=== PATIENT | male | born 1955 | race Caucasian/White ===

== ENCOUNTER 2020-12-26 16:41 | Inpatient (IN) | payer SELFPAY ==
[2020-12-26] VITALS (9 sets, daily range): BP systolic 158–175; BP diastolic 92–111; PULSE 53–66; RESP 18–20; TEMP 36.5–37; O2SAT 93–98; BMI 25.8; BMI 26.1
--- NOTE | 2020-12-26 16:48 | PC.NURSE ---
Stroke alert called.
--- NOTE | 2020-12-26 16:51 | PC.NURSE ---
fsbs 169
--- NOTE | 2020-12-26 16:53 | CT_ITS ---
PROCEDURE INFORMATION: Exam: CT Head Without Contrast Exam date and time: 12/26/2020 4:53 PM Age: 65 years old Clinical indication: Altered mental status/memory loss; Confusion or disorientation; Additional info: Stroke alert TECHNIQUE: Imaging protocol: Computed tomography of the head without contrast. Radiation optimization: All CT scans at this facility use at least one of these dose optimization techniques: automated exposure control; mA and/or kV adjustment per patient size (includes targeted exams where dose is matched to clinical indication); or iterative reconstruction. Other technique: STROKE PROTOCOL was implemented. COMPARISON: No relevant prior studies available. FINDINGS: Brain: No intracranial bleed, suspicious mass, or mass effect. Ventricles appear unremarkable. There is minimal low attenuation change in the white matter most consistent with chronic age related small vessel ischemic change. No acute territorial infarction is seen. These can be initially occult on head CT. ASPECTS score 10. Cerebral ventricles: See Brain finding. Paranasal sinuses: Visualized sinuses are unremarkable. No fluid levels. Mastoid air cells: Visualized mastoid air cells are well aerated. Bones/joints: Unremarkable. No acute fracture. Soft tissues: Unremarkable. IMPRESSION: 1. No intracranial bleed, suspicious mass, or mass effect. Ventricles appear unremarkable. 2. There is minimal low attenuation change in the white matter most consistent with chronic age related small vessel ischemic change. No acute territorial infarction is seen. These can be initially occult on head CT. 3. ASPECTS score 10.
--- NOTE | 2020-12-26 16:57 | CT_ITS ---
PROCEDURE INFORMATION: Exam: CT Angiography Head With Contrast, Arteriography Exam date and time: 12/26/2020 4:58 PM Age: 65 years old Clinical indication: Speech disturbance and weakness; Patient HX: Right sided weakness, slurred speech. ; Additional info: Right sided weakness, eval for lvo TECHNIQUE: Imaging protocol: Computed tomography angiography of the head with contrast. Exam focused on the arteries. 3D rendering (Not supervised by radiologist): MIP and/or 3D reconstructed images were created and reviewed. COMPARISON: CT HEAD/BRAIN WO CON 12/26/2020 5:03 PM FINDINGS: ANTERIOR CIRCULATION: Right internal carotid artery: Unremarkable. Intracranial segment is patent with no significant stenosis. No aneurysm. Right middle cerebral artery: Unremarkable. No occlusion or significant stenosis. No aneurysm. Right anterior cerebral artery: Unremarkable. No occlusion or significant stenosis. No aneurysm. Left internal carotid artery: Unremarkable. Intracranial segment is patent with no significant stenosis. No aneurysm. Left middle cerebral artery: Unremarkable. No occlusion or significant stenosis. No aneurysm. Left anterior cerebral artery: Unremarkable. No occlusion or significant stenosis. No aneurysm. POSTERIOR CIRCULATION: Right vertebral artery: Unremarkable. No occlusion or significant stenosis. No aneurysm. Left vertebral artery: Unremarkable. No occlusion or significant stenosis. No aneurysm. Basilar artery: Unremarkable. No occlusion or significant stenosis. No aneurysm. Right posterior cerebral artery: Unremarkable. No occlusion or significant stenosis. No aneurysm. Left posterior cerebral artery: Unremarkable. No occlusion or significant stenosis. No aneurysm. Aorta: Minimal atherosclerosis without dissection, aneurysm or flow-limiting lesion in the main intracranial arterial branching. Brain: No definite mass, mass effect, or midline shift. Cerebral ventricles: No ventriculomegaly. Bones/joints: Unremarkable. No acute fracture. Soft tissues: Unremarkable. IMPRESSION: Minimal atherosclerosis without dissection, aneurysm or flow-limiting lesion in the main intracranial arterial branching. PROCEDURE INFORMATION: Exam: CT Angiography Neck With Contrast Exam date and time: 12/26/2020 4:58 PM Age: 65 years old Clinical indication: Speech disturbance and weakness; Patient HX: Right sided weakness, slurred speech. ; Additional info: Right sided weakness, eval for lvo TECHNIQUE: Imaging protocol: Computed tomography angiography of the neck with contrast. 3D rendering (Not supervised by radiologist): MIP and/or 3D reconstructed images were created by the technologist. Radiation optimization: All CT scans at this facility use at least one of these dose optimization techniques: automated exposure control; mA and/or kV adjustment per patient size (includes targeted exams where dose is matched to clinical indication); or iterative reconstruction. Contrast material: ISOVUE 370; Contrast volume: 100 ml; Contrast route: INTRAVENOUS (IV); COMPARISON: CT HEAD/BRAIN WO CON 12/26/2020 5:03 PM FINDINGS: Right common carotid artery: No stenosis. No dissection or occlusion. Right internal carotid artery: No stenosis of the extracranial segment. No dissection or occlusion. Right external carotid artery: No occlusion or stenosis of the origin. Left common carotid artery: No stenosis. No dissection or occlusion. Left internal carotid artery: No stenosis of the extracranial segment. No dissection or occlusion. Left external carotid artery: No occlusi
--- NOTE | 2020-12-26 17:05 | HMH.EDGENADL ---
ED Disposition Clinical Impression: Cerebrovascular accident Qualifiers: CVA mechanism: unspecified Qualified Code(s): I63.9 - Cerebral infarction, unspecified Disposition: Admitted As Inpatient Condition on Discharge: Good - Critical Care Critical Care Time: Yes Attestation: On , the high probability of a clinically significant, sudden or life threatening deterioration of the following system(s) required my full and direct attention, intervention and personal management. The time I documented below is in addition to time spent performing reported procedures but includes the following listed in this critical care notation. Total Critical Care Time: 35 Vital system(s) involved:: Central Nervous System My critical care processes included: Assessment & monitoring of V/S, Initial and Re-exams, Data Review/Interpretation, Coordinating Care, Medication Orders and management, Documentation Medical Decision Making - Medical Records Medical records reviewed: Yes: I reviewed the patient's medical records. - Otis Inquiry Pt receiving controlled substance: No Vital Signs: 12/26/20 16:43 12/26/20 17:11 12/26/20 17:30 Temperature 98.6 F Temperature Source Oral Pulse Rate 65 61 Pulse Rate [Left Radial] 66 Respiratory Rate 20 Blood Pressure 174/111 H 175/97 H Blood Pressure [Right Arm] 174/105 H Blood Pressure Mean [Right Arm] 128 Blood Pressure Source [Right Arm] Automatic Cuff Blood Pressure Position [Right Arm] Sitting 02 Sat by Pulse Oximetry 98 98 95 Oxygen Delivery Method Room Air 12/26/20 18:00 12/26/20 18:30 Temperature Temperature Source Pulse Rate 57 L 55 L Pulse Rate [Left Radial] Respiratory Rate Blood Pressure 171/110 H 163/103 H Blood Pressure [Right Arm] Blood Pressure Mean [Right Arm] Blood Pressure Source [Right Arm] Blood Pressure Position [Right Arm] 02 Sat by Pulse Oximetry 93 L 94 L Oxygen Delivery Method - Lab Data Lab Results 12/26/20 16:54: WBC 5.8, RBC 4.71, Hgb 14.5, Hct 42.8, MCV 90.8, MCH 30.8, MCHC 33.9, RDW 14.8, Plt Count 384, MPV 7.8, Neut % (Auto) 53.4, Lymph % (Auto) 33.0, Beaver % (Auto) 10.1 H, Eos % (Auto) 2.3, Baso % (Auto) 1.2, Neut # (Auto) 3.1, Lymph # (Auto) 1.9, Beaver # (Auto) 0.6, Eos # (Auto) 0.1, Baso # (Auto) 0.1 12/26/20 16:54: PT 10.6, INR 0.93 12/26/20 16:54: Sodium 140, Potassium 4.1, Chloride 105, Carbon Dioxide 28, Anion Gap 11.1, BUN 14, Creatinine 0.70, Estimated Creat Clear 78, Estimated GFR 112, Est GFR ( Amer) 136, Glucose 121 H, Calcium 9.3, Total Bilirubin 0.1 L, AST 33, ALT 14, Alkaline Phosphatase 73, Total Protein 7.0, Albumin 4.0, Globulin 3.0, Albumin/Globulin Ratio 1.3 Result diagrams: 12/26/20 16:54 12/26/20 16:54 Orders (Tests/Meds): ED MEDICATIONS Discontinued Medications Generic Name Dose Route Start Last Admin Trade Name Freq PRN Reason Stop Dose Admin Iopamidol 100 ml 12/26/20 18:32 12/26/20 18:33 Iopamidol-370 (76%); 50ml Vial IV 12/26/20 18:33 100 ml ONCE ONE Administration Sodium Chloride 50 ml 12/26/20 18:32 12/26/20 18:33 0.9 % Sodium Chloride 50 Ml Vial IV 12/26/20 18:33 50 ml ONCE ONE Administration Sodium Chloride 10 ml 12/26/20 18:32 12/26/20 18:33 Sodium Chloride 0.9% 10ml Syr (Rad Only) IV 12/26/20 18:33 10 ml ONCE ONE Administration ORDERS Category Date Time Status Basic Metabolic Panel AMLAB Lab 12/27/20 06:00 Ordered Complete Blood Count Auto Diff AMLAB Lab 12/27/20 06:00 Ordered Rapid PCR Covid and Flu A/B Stat Lab 12/26/20 20:26 Ordered Medical Decision Narrative: Patient is a 65-year male presents the ED today with right-sided weakness for concern for stroke. Patient stroke alerted shortly after arrival, and taken to head CT scan for further evaluation of intracranial bleeding. Patient is outside of the TPA window definitively with a last known normal at 1030. However symptoms could be consistent with a large vess
[2020-12-26 17:06] LABS: Basophils # 0.1 K/mm3 (0-0.2); Basophils % 1.2 % (0.1-2.0); Eosinophils # 0.1 K/mm3 (0.0-0.4); Eosinophils % 2.3 % (0.1-12.0); Hematocrit 42.8 % (42.0-52.0); Hemoglobin 14.5 g/dL (14.1-18.0); Lymphocytes # 1.9 K/mm3 (0.7-4.5); Mean Corpuscular HGB Conc 33.9 g/dL (31.8-35.4); Mean Corpuscular Hemoglobin 30.8 pg (27.0-31.2); Mean Corpuscular Volume 90.8 fl (80-94); Mean Platelet Volume 7.8 fl (7.4-10.4); Monocytes # 0.6 K/mm3 (0.1-1.0); Monocytes % 10.1 % (1.7-9.3); Neutrophils # 3.1 K/mm3 (1.8-7.8); Neutrophils % 53.4 % (37.0-80.0); Platelet Count 384 K/mm3 (142-424); Red Blood Count 4.71 M/mm3 (4.60-6.20); Red Cell Distribution Width 14.8 % (11.5-17.5); White Blood Count 5.8 K/mm3 (4.8-10.8)
--- NOTE | 2020-12-26 17:11 | PC.NURSE ---
Pt returned from rad
--- NOTE | 2020-12-26 17:18 | PC.NURSE ---
Dr Golden speaking with RODERICK at this time.
[2020-12-26 17:35] LABS: Chloride 105 mmol/L (98-107); Potassium 4.1 mmoL/L (3.5-5.1); Sodium 140 mmol/L (136-145)
[2020-12-26 17:38] LABS: Alanine Aminotransferase 14 U/L (12-78); Albumin/Globulin Ratio 1.3 (1.1-1.8); Alkaline Phosphatase 73 U/L (38-126); Anion Gap 11.1 mEq/L (5-15); Aspartate Amino Transferase 33 U/L (17-59); Blood Urea Nitrogen 14 mg/dl (9-20); Carbon Dioxide 28 mmol/L (22.0-30.0); Creatinine Clearance Estimated 78 mL/min (50-200); Estimated Glomerular Filt Rate 112 ml/min (>60); GFR (African American) 136 ML/MIN (>60)
[2020-12-26 17:39] LABS: Calcium 9.3 mg/dl (8.4-10.2); Glucose 121 mg/dl (74-100)
[2020-12-26 17:48] LABS: Bilirubin,Total 0.1 mg/dl (0.2-1.3)
[2020-12-26 18:10] LABS: INR 0.93 (0.9-1.1); Prothrombin Time 10.6 seconds (10.1-12.5)
--- NOTE | 2020-12-26 18:20 | PC.NURSE ---
Pt returned from rad again at this time.
--- NOTE | 2020-12-26 18:48 | PC.NURSE ---
Dr Golden speaking with OUSMANEAD
[2020-12-26 20:37] LABS: Coronavirus 19, PCR Not Detected (NotDetected); Influenza A, PCR Not Detected (NotDetected); Influenza B, PCR Not Detected (NotDetected)
--- NOTE | 2020-12-26 20:38 | PC.NURSE ---
0 Called [facility]- They did not accept pt. 1919 Called [facility] transfer [place] 1937 Dr. Golden s/romeo Adams with - she stated she is an inpatient physician only . 1939 Called stroke team back for clarification on pt transfer. They sent this RN back to transfer center. Who confirmed the Dr. Adams only accepts acute stroke pts, if we would like the pt on a waiting list she will do that as there are no beds at this time on the floor. 1999 Updated pt and community members on POC 2014 Dr. Golden s/w Dr. Vanegas, he agrees to admit. 2019 Dr. Chico cunningham pt [address]31 [place] notified on the need for admission
--- NOTE | 2020-12-26 20:58 | PC.NURSE ---
[facility] are leaving. They have left a neighbor's phone number in case of emergency or any changes in pt status. Gaetano [phone] is on her way from [place], [place]- should be arriving ~ 1-2am.
--- NOTE | 2020-12-26 21:52 | PC.NURSE ---
patient up to floor via wheelchair at this time
--- NOTE | 2020-12-26 22:23 | PC.NURSE ---
pt passed nursing bed side swallow eval at this time, no problems noted
[2020-12-27] VITALS: BP 146/89; PULSE 62; RESP 16; TEMP 36.6; O2SAT 98
[2020-12-27 03:39] VITALS: BP 152/95; PULSE 55; RESP 16; TEMP 36.9; O2SAT 98
[2020-12-27 05:01] VITALS: BMI 26.1
--- NOTE | 2020-12-27 06:27 | PC.NURSE ---
Addendum entered by Megan Liriano RN 12/27/20 06:51: pt does state that approximately 6 weeks ago he fell off an 8 foot ladder onto his right side while picking apples Original Note: pt has noticeable left side facial drooping and mild and moderate dysarthria, right studio receptionist is slightly weaker than the left studio receptionist, no complaints of pain, remains on room air
--- NOTE | 2020-12-27 07:15 | P.CONPHA_ITS ---
[facility] Pharmacy VTE Monitoring - Patient Demographics Admission date: 12/26/20 Report Date: 12/27/20 Time: 07:15 Allergies/Adverse Reactions: Patient Allergies No Known Allergies Allergy (Verified 12/27/20 00:47) Height: 1.73 m Weight: 78.131 kg Patient Problems: Current Active Problems Cerebrovascular accident (Acute) - VTE Risk Labs: VTE Related Lab Results Hgb 14.5 g/dL (14.1-18.0) 12/26/20 16:54 Hct 42.8 % (42.0-52.0) 12/26/20 16:54 Plt Count 384 K/mm3 (142-424) 12/26/20 16:54 PT 10.6 seconds (10.1-12.5) 12/26/20 16:54 INR 0.93 (0.9-1.1) 12/26/20 16:54 BUN 14 mg/dl (9-20) 12/26/20 16:54 Creatinine 0.70 mg/dl (0.66-1.25) 12/26/20 16:54 Estimated Creat Clear 78 mL/min (50-200) 12/26/20 16:54 Was VTE Risk Assessment Performed: Yes VTE Score: 1 VTE Risk Level: Very Low Risk Clinical Trial Participant: No - Prophylaxis VTE Prophylaxis Ordered?: Yes Types of VTE Prophylaxis: TEDS Knee High
[2020-12-27 07:19] LABS: Basophils # 0.1 K/mm3 (0-0.2); Basophils % 0.8 % (0.1-2.0); Eosinophils # 0.2 K/mm3 (0.0-0.4); Eosinophils % 3.1 % (0.1-12.0); Hematocrit 44.1 % (42.0-52.0); Hemoglobin 15.1 g/dL (14.1-18.0); Lymphocytes # 2.1 K/mm3 (0.7-4.5); Lymphocytes % 38.1 % (10-50); Mean Corpuscular HGB Conc 34.3 g/dL (31.8-35.4); Mean Corpuscular Hemoglobin 30.7 pg (27.0-31.2); Mean Corpuscular Volume 89.5 fl (80-94); Mean Platelet Volume 7.8 fl (7.4-10.4); Monocytes # 0.5 K/mm3 (0.1-1.0); Monocytes % 8.5 % (1.7-9.3); Neutrophils # 2.7 K/mm3 (1.8-7.8); Neutrophils % 49.5 % (37.0-80.0); Platelet Count 397 K/mm3 (142-424); Red Blood Count 4.93 M/mm3 (4.60-6.20); Red Cell Distribution Width 14.8 % (11.5-17.5); White Blood Count 5.4 K/mm3 (4.8-10.8)
[2020-12-27 07:26] LABS: Anion Gap 12.5 mEq/L (5-15); Blood Urea Nitrogen 11 mg/dl (9-20); Calcium 9.1 mg/dl (8.4-10.2); Carbon Dioxide 26 mmol/L (22.0-30.0); Chloride 106 mmol/L (98-107); Creatinine Clearance Estimated 79 mL/min (50-200); Estimated Glomerular Filt Rate 112 ml/min (>60); GFR (African American) 136 ML/MIN (>60); Glucose 92 mg/dl (74-100); Potassium 4.5 mmoL/L (3.5-5.1); Sodium 140 mmol/L (136-145)
[2020-12-27 08:00] VITALS: BP 152/82; PULSE 80; PULSE 85; RESP 18; TEMP 37; O2SAT 98
--- NOTE | 2020-12-27 08:18 | CA_ITS ---
APPROVED REPORT EXAM: Comprehensive 2D, Doppler, and color-flow Echocardiogram Meter Reader: Mirta Tillman, JIN, RVS Ht: 5 ft 4 in Wt: 172lbs BSA: 1.83 BP: 152/95 mmHg Indications: CVA, HTN, Right sided weakness 2D Dimensions IVSd 0.92 cm LVEF (Visual) 76.50 % PWd 1.05 cm LA Volume 43.10 mL LVDd 3.93 cm LA Volume Index 23.60 mL/m2 (M/F) 16-34 LVDs 2.18 cm Left Atrium 2.63 cm LVOT 1.81 cm (M/F) 1.5-2.5 M-Mode Dimensions LA Diam 3.43 cm (1.9-4.0) Ao Diam 3.43 cm (2.0-3.7) EPSs 0.30 cm TAPSE 2.06 (<1.7) LV Diastology E Decel Time 200.00 (160-240 msec) E/A Ratio 0.65 MED E' 7.00 (< 7 cm/sec) MED A' 14.60 cm/s E'/MED E' Ratio 8.87 (>14) LAT E' 5.70 (<10 cm/sec) LAT A' 9.60 cm/s E/LAT E' Ratio 10.89 (>14) Pulm Vein s 38.00 cm/sec Pulm Vein d 29.00 cm/sec Ar-A Duration 147.00 msec Aortic Valve LVOT Max 102.00 (70-110 cm/s) LVOT VTI 19.59 cm AoV Peak Regino. 140.00 (50-130 cm/s) AO Peak GR. 7.80 mmHg AO Mean GR. 3.80 (<5 mmHg) AO VTI 24.82 (18-25 cm) KIRIT (VTI) 2.03 (2.5-4.5 cm2) Mitral Valve MV A Velocity 95.00 (40-130 cm/s) E/A Ratio 0.65 MV Decel. Time 200.00 (160-240 ms) MV Mean Gr. 0.90 (<2mmHg) Pulmonary Valve PV Peak Velocity 135.00 (50-150 cm/s) TN End VMAX 173.00 cm/s Tricuspid Valve TR P. Velocity 284.00 cm/s RAP Estimate 10.00 mmHg RVSP 42.30 mmHg Left Ventricle Left atrium is mildly enlarged, left ventricle is normal size, mild concentric left ventricular hypertrophy, visually estimated ejection fraction 55% with no regional wall motion abnormality, grade 1 diastolic dysfunction seen without tissue Doppler evidence of raise left atrial pressure. Right Ventricle Right atrium and right ventricle are mildly enlarged with normal contractility. Aortic Valve Aortic valve is minimally thickened and fibrosed, there is no aortic stenosis or aortic insufficiency. Mitral Valve Mitral valve grossly normal, there is trace mitral regurgitation. Tricuspid Valve Tricuspid grossly normal, there is trace tricuspid regurgitation, tricuspid regurgitation jet velocity is inadequate for calculation of the right ventricular systolic pressure. Pulmonic Valve Pulmonic valve is poorly visualized. Great Vessels Aortic root is normal size. Inferior vena cava normal size with normal inspiratory collapse. Pericardium No significant pericardial effusion noted. Conclusion 1. Technically difficult study because of the patient factors and poor acoustic windows, mild biatrial enlargement, normal left ventricular size, mild concentric left ventricular hypertrophy, visually estimated ejection fraction 55% with no regional wall motion abnormality, grade 1 diastolic dysfunction seen without tissue Doppler evidence of raise left atrial pressure. 2. Mildly enlarged right ventricle with normal contractility. 3. Trace mitral and tricuspid regurgitation. 4. No significant pericardial effusion noted. 5. Inferior vena cava normal size with normal inspiratory collapse. Electronically signed by : Armando Khan MD 12/27/2020 21:38:07
--- NOTE | 2020-12-27 08:18 | CA_ITS ---
APPROVED REPORT Lockstitch Front Edge Tape Sewer: NATE Laterality: Bilateral Study Quality: Good Indications: Acute CVA, Right sided weakness Doppler Spectral Velocity Analysis ECA (R) 113.10/23.10 cm/s ECA (L) 83.80/21.70 cm/s dICA (R) 89.90/34.00 cm/s dICA (L) 113.70/50.70 cm/s Edelm[place] (R) 68.70/25.70 cm/s [place]elm[place] (L) 108.50/46.20 cm/s pICA (R) 64.20/19.90 cm/s pICA (L) 67.30/15.70 cm/s dCCA (R) 60.40/21.20 cm/s dCCA (L) 69.60/21.70 cm/s pCCA (R) 82.20/23.80 cm/s pCCA (L) 95.80/28.40 cm/s Vert (R) 24.40/10.30 cm/s Vert (L) 36.40/16.60 cm/s ICA/CCA 1.09 ICA/CCA 1.62 Findings Duplex evaluation demonstrates stenosis of the right proximal internal carotid artery <20% with PSV <140 cm/sec, EDV <100 cm/sec, and IC/CC Ratio <4.0. Duplex evaluation demonstrates stenosis of the left proximal internal carotid artery <20% with PSV <140 cm/sec, EDV <100 cm/sec, and IC/CC Ratio <4.0. Duplex evaluation demonstrates antegrade flow of the bilateral Vertebral Arteries. Left mid-distal ICA tortuosity observed. Conclusion Duplex evaluation demonstrates stenosis of the right proximal internal carotid artery <20% with PSV <140 cm/sec, EDV <100 cm/sec, and IC/CC Ratio <4.0. Duplex evaluation demonstrates stenosis of the left proximal internal carotid artery <20% with PSV <140 cm/sec, EDV <100 cm/sec, and IC/CC Ratio <4.0. Duplex evaluation demonstrates antegrade flow of the bilateral Vertebral Arteries. Left mid-distal ICA tortuosity observed. Electronically signed by : Yousuf Estevez MD 12/27/2020 17:01:05
--- NOTE | 2020-12-27 10:04 | HMH.OTEV ---
OT Inpatient Evaluation Rehab OT IP Evaluation Start: 12/27/20 08:17 Freq: ONCE Status: Complete Protocol: Document 12/27/20 10:01 REY (Rec: 12/27/20 10:04 REY [id number]) Rehab OT IP Assessment Subjective History Patient is a 65-year male presents the ED today with right-sided weakness for concern for stroke. Patient stroke alerted shortly after arrival, and taken to head CT scan for further evaluation of intracranial bleeding. Patient is outside of the TPA window definitively with a last known normal at 1030. However symptoms could be consistent with a large vessel occlusion, we will obtain labs, IV access, CT angio of the head and neck. CT scan obtained with no evidence of hemorrhage, and we also obtain CT angio of the head and neck with no evidence of large vessel occlusion or significant stenosis. Given this we would like to transfer patient to a stroke center, after discussion with the patient, he does not want to be transferred to [facility] or [facility] or [facility] in [place], as he lives in [place] and was only here visiting. We have attempted to make calls to [facility], which is full and we have patient currently on the wait list, and [facility] in [place] near where the patient lives, neither of these facilities are able to take transfer calls at this time due to patient volume, patient is currently on the wait list. Given this, we have discussed further with the patient, he is amenable to staying here while waiting
--- NOTE | 2020-12-27 10:25 | HMH.PTEV ---
Physical Therapy Evaluation Rehab PT IP Evaluation Start: 12/27/20 08:16 Freq: ONCE Status: Active Protocol: Document 12/27/20 10:20 PWCODY (Rec: 12/27/20 10:25 PWCODY [id number]) Subjective/History History History This is the initial IP PT evaluation for Dong Olmos. Pt admitted to [facility] thru ED for CVA. Pt was fully I prior to admission Subjective Subjective pt has no complaints Rehab PT IP Eval Objective Appearance Patient Behavior Appropriate,Cooperative Patient Orientation Person,Place,Time Difficulty following instructions none Speech Pattern Appropriate,Slurred Ambulation Patient Able to Ambulate Yes Ambulation Observation IP General Gait Pattern Observation Wide Based Gait Ambulation Distance (feet) 60 Ambulation Assistive Device None Ambulation Ability Independent Balance Ability to Arise Able, w/o using arms Sitting Balance Steady, safe Standing Balance Narrow stance w/o support Dynamic Sitting Balance Ability Normal Dynamic Standing Balance Ability Normal Transfers Bed Transfer Ability Independent Chair Transfer Ability Independent Sit to Stand Bed Transfer Ability Independent Sit to Stand Chair Transfer Ability Independent ROM All Extremities PT ROM Status WNL MMT All Extremities PT MMT WFL Rehab PT IP prob,goals,plan Problems Date of Evaluation: 12/27/20 Rehab Potential Rehab Potential Innapropriate for Skilled Therapy Discharge Plan PT Discharge Plan Pt has no need for skilled therapy at this time as inpatient - pt may benefit from speech therapy for L sided facial droop and articulation. Pt may also benefit from OPOT for slight decrease in RUE coordination and fine motor. Pt is safe to return home once mediclly stable. G -code Required Yes Eval Complexity Eval Charge Codes 78209 - Low Complexity G Codes PT Current Status Mobility PT Current Status Modifier CH-0% impaired, limited or restricted PT Goal Status Mobility PT Goal Status Modifer CH-0% impaired, limited or restricted
[2020-12-27 12:00] VITALS: BP 160/76; PULSE 61; PULSE 72; RESP 19; TEMP 36.6; O2SAT 97
--- NOTE | 2020-12-27 13:29 | HMH.HPDC ---
General - General Admission date:: 12/26/20 Discharge date: 12/27/20 *Admission Date: 12/26/20 *Chief complaint: cva *History of present illness: this patient presented to the ed - seen immediately upon arrival as a code stroke, with right-sided weakness of the upper and lower extremity, and right-sided facial droop. Patient states that the symptoms started approximately 10 30. Pt states that he has never had a stroke before, but states that he has had family with some in the past. Patient states he has been otherwise well recently, and no other acute distress. We will obtain further history after stroke work-up. Patient is a 65-year male presents the ED today with right-sided weakness for concern for stroke. Patient stroke alerted shortly after arrival, and taken to head CT scan for further evaluation of intracranial bleeding. Patient is outside of the TPA window definitively with a last known normal at 1030. However symptoms could be consistent with a large vessel occlusion, we will obtain labs, IV access, CT angio of the head and neck. CT scan obtained with no evidence of hemorrhage, and we also obtain CT angio of the head and neck with no evidence of large vessel occlusion or significant stenosis. Given this we would like to transfer patient to a stroke center, after discussion with the patient, he does not want to be transferred to [facility] or [facility] or [facility] in [place], as he lives in [place] and was only here visiting. We have attempted to make calls to [facility], which is full and we have patient currently on the wait list, and [facility] in [place] near where the patient lives, neither of these facilities are able to take transfer calls at this time due to patient volume, patient is currently on the wait list. Given this, we have discussed further with the patient, he is amenable to staying here while waiting await for possible transfer. Patient's neurologic deficit incidentally is improving he is able to ambulate, is not having any significant weakness of the right lower or right upper extremity anymore although he still is having dysarthria. Patient informed of transfer situation, and is amenable with the plan as stated, spoken with Dr. Vanegas who will admit . We have started patient on aspirin as well. [facility] History I have reviewed the patient's past medical history: Yes Medical History: Denies:: Cancer, Diabetes Mellitus Type 1, Diabetes Mellitus Type 2, Internal Pacemaker, MRSA *Have you ever received a pneumonia vaccine?: No *Have you received a flu vaccine this season?: No Other Surgeries: No: Pacemaker Amputation: No Fractures: No - *Social History Smoking Status: Never smoker Alcohol Intake: never *Occupational Status:: employed *Travel in the last 8 weeks: Inside the [place] Family Hx:: No significant family history Review of Systems - Review of Systems Review of systems:: pertinent systems reviewed and negative unless documented below - Constitutional Denies fever(s) - Eyes Denies change in vision - ENT Denies nosebleed - *Cardiovascular Denies chest pain - *Respiratory Denies cough - *Gastrointestinal Denies abdominal pain - *Genitourinary Denies blood in urine - *Musculoskeletal Denies joint pain - Integumentary/Breasts Denies rash - *Neurologic Reports abnormal speech, Reports localized weakness, Reports weakness, Denies confusion, Denies headache(s), Denies loss of vision, Denies seizure-like activity - Psychiatric Denies anxiety Exam Vital signs and Labs for Last 24 Hours: Temp Pulse Resp BP Pulse Ox 98 F 72 19 160/76 H 97 12/27/20 12:00 12/27/20 12:00 12/27/20 12:00 12/27/20 12:00 12/27/20 12:00 Laboratory Results - last 24 hr 12/26/20 16:54: WBC 5.8, RBC 4.71, Hgb 14.5, Hct 42.8, MCV 90.8, MCH 30.8, MCHC 33.9, RDW 14.8, Plt Count 384, MPV 7.8, Neut % (Auto) 53.4, Lymph % (Auto) 33.0, [place] % (Auto
[2020-12-27 13:42] LABS: Chol/HDL Ratio 4.6 (1-3.5); Cholesterol 181 mg/dl (140-200); HDL Cholesterol 39 mg/dl (40-60); Triglycerides 154 mg/dl (30-150); VLDL Cholesterol 31 mg/dL (0-40)
--- NOTE | 2020-12-27 13:44 | HMH.SLDYSPHA ---
Speech & Language Evaluation Speech/Language Dysphagia Evaluation Start: 12/27/20 13:39 Freq: ONCE Status: Active Protocol: Document 12/27/20 13:39 ROJELIO (Rec: 12/27/20 13:44 ROJELIO [id number]) Dysphagia Assess/Goals/Plan Assessment Date of Evaluation: 12/27/20 Evaluation Type Initial Certification Assessment/Problems Dysphagia Does Patient Qualify for Service No Qualify/Failure Comment No overt signs/symptoms were noted during the evaluation. Recommendations PHYSICIAN CERTIFICATION: The specified therapy services are required, authorized, and reviewed every 30 days. Diet Recommendations Normal Liquid Type Recommendations Normal/Thin Plan Pt/Guardian verbally ack understanding Yes of dx/prognosis/goals G -code Required No Speech & Language HPI History Present Illness Is this evaluation r/t stroke? Yes General Information General Current Food Consistancy Regular,Thin Liquids Dentition Upper Only Oxygen Status Room Air Facial Symmetry Asymmetrical Patient Orientation Person,Place,Time,Situation Ability to Follow Directions Excellent Communication Ability No Impairment Dysphagia:Food Presentation Evaluation Food Type Pureed,Mechanical Soft,Regular ,Liquid,Pudding Dysphagia Evaluation Summary Mr. Olmos was given the following consistencies: thins via straw and open cup, pudding, pureed, mechanical soft, and regular. No overt signs and symptoms of dysphagia were noted. It was noted that he did have minimal facial drooping and minimal slurred speech. Family reports the slurred speech has improved since admission. INFORMATION CLERK CASHIER instructed patient on exercises to promote labial movement. ST not warranted at this time. Diet will remain the same. Stroke Dysphagia Assessment PHYSICIAN CERTIFICATION: I certify the specified therapy services for Dong Olmos are required, authorized, and reviewed every 30 days.
[2020-12-27 13:53] LABS: Direct LDL Cholesterol 122.56 mg/dL (100-129)
--- NOTE | 2020-12-27 14:50 | PC.NURSE ---
Discharge education provided to pt and family. Questions encouraged and answered. Pt. v/u. IV removed from LAC. financial economist removed. Pt. informed to call out when ready for wheelchair to go down to vehicle. Pt. v/u.
--- NOTE | 2020-12-27 15:00 | PC.NURSE ---
Pt. to private vehicle by wheelchair accompanied by staff x1. and family.
== END 2020-12-27 15:00 | disposition home or self-care (01) | DRG 65 ==
LOC: ER 20:34 → 2ND 21:05
PROVIDERS: Admitting Provider Emergency Medicine; Emergency Provider Student in an Organized Health Care Education/Training Program; Visit Provider Emergency Medicine
DX: I63.89 Other cerebral infarction (principal); G81.91 Hemiplegia, unspecified affecting right dominant side; R29.810 Facial weakness; I10 Essential (primary) hypertension; R47.1 Dysarthria and anarthria
CPT/HCPCS: 36415; 70450; 70496; 70498; 80048; 80053; 80061; 85025; 85610; 92610; 93306; 93880; 97161; 97165; 99203; C9803; G0463; Q9967; U0003; U0005